=== PATIENT | male | born 1960 | race Caucasian/White ===

== ENCOUNTER 2016-09-27 10:45 | Inpatient (IN) | payer BC ==
[2016-09-27] VITALS (8 sets, daily range): BP systolic 107–126; BP diastolic 51–67
[~2016-09-27] VITALS: Ht 170.2 cm; Wt 110.6 kg
[~2016-09-27 10:45] MED LIST: AMLODIPINE BESYL5 MG PO; ASPIRIN EC325 MG PO; ATORVASTATIN CA80 MG PO; Aspirin E.C. PO; BACTRIM,SEPT1 TABLET PO; CRESTOR40 MG PO; DAILY VALUE1 EACH PO; EFFIENT10 MG PO; HYDROCHLOROTHIA25 MG PO; LISINOPRIL40 MG PO; METOPROLOL SUC100 MG PO; NICOTINE PATCH1 EAC1 TD; NITROSTAT0.4 MG SL; SPIRONOLACTONE25 MG PO; Toprol XL PO; Zestril,Prinivil PO
[2016-09-27] MEDS ORDERED: CRESTOR40 MG PO (10:54)
[2016-09-27] MEDS ORDERED: CILOSTAZOL100 MG PO (10:55)
[2016-09-27] MEDS ORDERED: PAIN RELIEF325 M1 PO (12:12)
[2016-09-27 12:28] LABS: HEMATOCRIT 43.1 % (38.0-50.0); MCH 29.9 PG (29.0-34.0); MCHC 33.2 G/DL (30.0-36.0); MCV 90.2 FL (86-99); MEAN PLAT.VOLUME 8.6 uM^3 (9.0-12.4); PLATELET COUNT 216 K/uL (156-360); RBC DIS.WIDTH-CV 13.2 % (11.8-14.6); RBC DIS.WIDTH-SD 43.3 % (39-53); RED BLOOD COUNT 4.78 M/uL (4.00-5.50); WHITE BLOOD COUNT 9.2 K/uL (4.1-10.2)
[2016-09-27 12:39] LABS: PROTHROMBIN TIME 10.5 (9.2-11.2); PTT 26.6 (25-32)
[2016-09-27 19:33] LABS: HEMATOCRIT 39.2 % (38.0-50.0); MCH 30.4 PG (29.0-34.0); MCHC 33.4 G/DL (30.0-36.0); MEAN PLAT.VOLUME 8.3 uM^3 (9.0-12.4); PLATELET COUNT 210 K/uL (156-360); RBC DIS.WIDTH-CV 13.3 % (11.8-14.6); RBC DIS.WIDTH-SD 44.4 % (39-53); RED BLOOD COUNT 4.31 M/uL (4.00-5.50); WHITE BLOOD COUNT 10.3 K/uL (4.1-10.2)
[2016-09-27 19:53] LABS: TROP-I INTERPRETATION NEGATIVE; TROPONIN-I 0.03 ng/mL (0.0-0.30)
[2016-09-27 19:57] LABS: ANION GAP 9 MEQ/L (2-14); CHLORIDE 104 MEQ/L (99-109); GFR ESTIMATE (CALCULATED) > 59 mL/min/; GLUCOSE 110 mg/dL (70-99); POTASSIUM 4.2 MEQ/L (3.7-5.4); SAMPLE HEMOLYSIS CHECK 0; SAMPLE ICTERIC CHECK 0; SAMPLE LIPEMIA CHECK 0; SODIUM 139 MEQ/L (136-147); UREA NITROGEN (BUN) 11 mg/dL (9-23)
[2016-09-27 21:48] LABS: METH RESISTANT S AUREUS PCR NEGATIVE (NEGATIVE)
[2016-09-27 21:51] LABS: PROBE CHECK PASS; SPECIMEN PROCESSING CONTROL PASS
[2016-09-28] VITALS (10 sets, daily range): BP systolic 86–116; BP diastolic 38–93
[2016-09-28 06:14] LABS: HEMATOCRIT 34.3 % (38.0-50.0); MCH 29.4 PG (29.0-34.0); MCHC 32.4 G/DL (30.0-36.0); MCV 90.7 FL (86-99); MEAN PLAT.VOLUME 8.6 uM^3 (9.0-12.4); PLATELET COUNT 191 K/uL (156-360); RBC DIS.WIDTH-CV 13.3 % (11.8-14.6); RBC DIS.WIDTH-SD 43.8 % (39-53); RED BLOOD COUNT 3.78 M/uL (4.00-5.50); WHITE BLOOD COUNT 8.2 K/uL (4.1-10.2)
[2016-09-28 06:24] LABS: TROP-I INTERPRETATION NEGATIVE; TROPONIN-I 0.01 ng/mL (0.0-0.30)
[2016-09-28 06:49] LABS: ANION GAP 7 MEQ/L (2-14); CHLORIDE 104 MEQ/L (99-109); GFR ESTIMATE (CALCULATED) > 59 mL/min/; GLUCOSE 114 mg/dL (70-99); POTASSIUM 3.9 MEQ/L (3.7-5.4); SAMPLE HEMOLYSIS CHECK 0; SAMPLE ICTERIC CHECK 0; SAMPLE LIPEMIA CHECK 0; SODIUM 139 MEQ/L (136-147); UREA NITROGEN (BUN) 13 mg/dL (9-23)
== END 2016-09-28 17:10 | disposition home or self-care (01) | DRG 272 ==
LOC: SDC 10:45 → 4WEST 18:56 → 2SOUTH 18:56 → 4WEST 20:06
PROVIDERS: Surgery
DX: I74.5 Embolism and thrombosis of iliac artery (principal); G47.30 Sleep apnea, unspecified; I10 Essential (primary) hypertension; I25.10 Atherosclerotic heart disease of native coronary artery without angina pectoris; E78.00 Pure hypercholesterolemia, unspecified; I25.2 Old myocardial infarction; Z95.5 Presence of coronary angioplasty implant and graft; Z87.891 Personal history of nicotine dependence
CPT/HCPCS: 80048; 84484; 85027; 85384; 85610; 85730; 87641; 93005; C1725; C1768; C1769; C1894; C2628; J0690; J1644; J1650; J2250; J3010; J7120